=== PATIENT | male | born 1955 | race Caucasian/White ===

== ENCOUNTER 2017-04-20 09:14 | Outpatient (CLI) | payer BC ==
--- NOTE | 2017-04-20 11:32 | ULT ---
BILATERAL CAROTID DUPLEX ULTRASOUND: DATE: 04/20/17 HISTORY: Hypertension. TECHNIQUE: Bennett scale ultrasound with color flow and spectral Doppler imaging of the extracranial carotid artery systems performed. FINDINGS: No significant plaque formation or intimal wall thickening is seen. The peak systolic velocity in the right ICA measures 104 cm/second with systolic ratio of 0.70. The peak systolic velocity in the left ICA measures 73 cm/second with a systolic ratio of 0.60. Flow in both vertebral arteries remains antegrade. IMPRESSION: No evidence of hemodynamically significant stenosis. POS: [facility]
== END 2017-04-20 09:15 | disposition home or self-care (01) ==
LOC: ULT 09:14
PROVIDERS: ATTEND Internal Medicine Cardiovascular Disease
DX: I10 Essential (primary) hypertension (principal); R00.2 Palpitations; R42 Dizziness and giddiness
CPT/HCPCS: 93225; 93226; 93306; 93880